=== PATIENT | female | born 1995 | race Caucasian/White ===

== ENCOUNTER 2025-04-04 10:00 | Day surgery (SDC) | payer OTHER ==
[2025-03-30 09:00] VITALS: BP 111/71
[2025-03-30 09:11] LABS: BASO % 0.5 % (0.1-1.2); EOS # 0.03 (0.04-0.54); EOS % 0.4 % (0.7-7.0); LYMPH # 1.31 (1.18-3.74); LYMPH % 17.5 % (19.3-53.1); MEAN PLATELET VOLUME 10.60 fl (9.4-12.4); MONO # 0.42 (0.24-0.82); MONO % 5.6 % (4.7-12.5); NEUT # 5.66 (1.56-6.13); NEUT % 75.9 % (34.0-71.1); RED CELL DISTRIBUTION WIDTH 14.6 % (11.6-14.4)
[2025-03-30 09:27] LABS: URINE APPEARANCE Clear; URINE BILIRRUBIN Negative (NEGATIVE); URINE BLOOD Moderate; URINE COLOR Yellow; URINE GLUCOSE Negative (NEGATIVE); URINE KETONE 15 (NEGATIVE); URINE LEUKOCYTE Negative; URINE NITRATE Negative; URINE PROTEIN Negative (NEGATIVE); URINE UROBILINOGEN 0.2 E.U./dl
[2025-03-30 09:32] LABS: URINE BACTERIA 13.1 uL (0.0-1933); URINE EPITHELIAL CELLS 4.6 uL (0.0-38.8); URINE RBC 327.6 uL (0.0-20.8); URINE WBC 20.1 uL (0.0-23.2)
[2025-03-30 09:34] LABS: INR 0.97
[2025-03-30 09:54] LABS: URINE CAST 0.14 uL (0.0-1.40)
[2025-03-30 10:00] LABS: ALT/SGPT 12.0 U/L (12-78); AST/SGOT 11.0 U/L (15-37); BILIRUBIN TOTAL 1.07 mg/dL (0.3-1.2); BUN CREA RATIO 14.0 (7.0-25.0); CREATININE SERUM 0.64 mg/dL (0.55-1.02); GFR 108.96; GLOBULINA 3.7 G/DL (2.4-3.5); GLUCOSE FASTING 66.0 mg/dL (65-100); OSMOLALITY SERUM 274.0 MOSM/KG (275-295)
[~2025-04-04] VITALS: Ht 162.6 cm; Wt 51.7 kg
[2025-04-04] MEDS ORDERED: POVIDONE-IODINE 118 ML BOTT TOP ONE ×2 (10:42→12:45)
[2025-04-04] MEDS ORDERED: CHLORHEXIDINE GLUCONATE 120 ML BOTTLE TOP ONE (10:42)
[2025-04-04] MEDS ORDERED: MENTHOL/CETYLPYRD CL 1 LOZENGE MM ONE (14:45)
== END 2025-04-04 17:50 | disposition home or self-care (01) ==
LOC: CIR.AMB 10:00
PROVIDERS: ATTEND Obstetrics & Gynecology Obstetrics
DX: N84.0 Polyp of corpus uteri (principal)